=== PATIENT | female | born 1970 | race Caucasian/White ===

== ENCOUNTER 2021-02-28 11:47 | Emergency (ER) | payer BC ==
[~2021-02-28] VITALS: Ht 182.9 cm; Wt 77.2 kg
[~2021-02-28 11:47] MED LIST: FLUO40CA8; TRAZ-252
[2021-02-28] MEDS ORDERED: KETOROLAC 30MG/ML VIAL IV STA (12:02)
[2021-02-28] MEDS ORDERED: MORPHINE SULFATE 4 MG/ML CPJ (NOT FOR IM USE) IV STA (12:02)
[2021-02-28] MEDS ORDERED: HYDROMORPHONE HCL/PF 2MG/ML CPJ IV ONE (13:15)
[2021-02-28] MEDS ORDERED: HYDR-4346 PO (13:19)
[2021-02-28 14:20] VITALS: BP 135/70
== END 2021-02-28 14:20 | disposition home or self-care (01) ==
LOC: ER 11:47
DX: M25.511 Pain in right shoulder (principal)
CPT/HCPCS: 96374; 96375; 99284; J1170; J1885; J2270; A4565